=== PATIENT | female | born 1990 | race Caucasian/White ===

== ENCOUNTER 2019-02-22 20:36 | Emergency (ER) | payer BC ==
[2019-02-22 21:06] VITALS: BP 136/88; TEMP 97.9; O2SAT 98
[2019-02-22] MEDS ORDERED: HYDROcodone 7.5MG/APAP 325MG 1 EA TAB PO ONE (21:06)
--- NOTE | 2019-02-22 21:11 | ED.PDOC ---
History of Present Illness - General Chief Complaint: Back Pain or Injury Stated Complaint: Pulled Muscle Time Seen by Provider: 02/22/19 21:06 Source: patient Exam Limitations: no limitations - History of Present Illness Initial Comments: The patient is a 28-year-old female presenting to the emergency room secondary to continued paraspinal muscle spasm adjacent to approximately T8 on the right. 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 She has been taking a muscle relaxer, prednisone and some Tylenol 3. It is still causing her some difficulty. no neurological changes. No pain at the spinous process. No step-off. No bruising. There is palpable muscle spasm. Timing/Duration: other - approximately 10 days Severity: moderate Improving Factors: movement Worsening Factors: movement Associated Symptoms: denies symptoms Home Medications: Ambulatory Orders Tramadol HCl 50 mg PO Q8HR PRN #20 tab 02/22/19 Review of Systems - Review of Systems Constitutional: States: no symptoms reported EENTM: States: no symptoms reported Respiratory: States: no symptoms reported Cardiology: States: no symptoms reported Gastrointestinal/Abdominal: States: no symptoms reported Genitourinary: States: no symptoms reported Musculoskeletal: States: see HPI Skin: States: no symptoms reported Neurological: States: no symptoms reported Endocrine: States: no symptoms reported Hematologic/Lymphatic: States: no symptoms reported All other Systems: No Change from Baseline Past Medical History (General) - Patient Medical History Surgical History: tonsillectomy - Vaccination History Hx Tetanus, Diphtheria Vaccination: Yes Hx Influenza Vaccination: Yes Hx Pneumococcal Vaccination: No Immunizations Up to Date: No - Social History Hx Tobacco Use: Yes Hx Depression: Yes - Female History Patient is a Female of Child Bearing Age (10 -59 yrs old): Yes Patient : No Family Medical History - Family History Mother Family History: Unknown Physical Exam - Physical Exam General Appearance: Alert, Comfortable, No apparent distress Eye Exam: bilateral normal Ears, Nose, Throat: hearing grossly normal, normal ENT inspection Neck: full range of motion, supple Respiratory: no respiratory distress, no accessory muscle use Cardiovascular/Chest: normal peripheral pulses, no edema Peripheral Pulses: radial,right: 2+, radial,left: 2+ Gastrointestinal/Abdominal: non tender, soft Rectal Exam: deferred Back Exam: no vertebral tenderness, muscle spasm, other - see history of present illness Extremity: normal range of motion, non-tender, normal inspection, no pedal edema, normal capillary refill 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 She has been taking her muscle relaxer and is still taking a steroid. She is out of her Tylenol 3. I'm going to switch her to tramadol and give her a dose of hydrocodone tonight. She needs to keep well-hydrated. Primarily she needs to do stretching exercises and take an [id number] anti-inflammatory such as ibuprofen or Aleve. Topical heat may help as well. ER warnings were given. Follow-up with primary care doctor in 3 days. Departure - Departure Clinical Impression: Mid back pain on right side Disposition: Discharge to Home or Self Care Condition: Fair Departure Forms: ED Discharge - Pt. Copy, Patient Portal Self Enrollment Instructions: DI for Back Strain or Sprain Diet: regular diet Activity: increase activity as tolerated Prescriptions: Tramadol HCl 50 mg PO Q8HR PRN #20 tab PRN Reason: Moderate Pain Home Medications: Ambulatory Orders Tramadol HCl 50 mg PO Q8HR PRN #20 tab 02/22/19 Additional Instructions: patient is 28-year-old female presenting to the emergency room secondary to persistent muscle spasm adjacent to approximately T8 or T9 on the right side. She has been taking her muscle relaxer and is still taking a steroid. She is out of her Tylenol 3. I'm going to switch her to tramadol and give her a dose of hydrocodone tonight. She needs to keep well-hydrated. Primarily she needs to do stretching exercises and take an [id number] anti-inflammatory such as ibuprofen or Aleve. Topical heat may help as well. ER warnings were given. Follow-up with primary care doctor in 3 days.
== END 2019-02-22 21:20 | disposition home or self-care (01) ==
LOC: ER 20:36
DX: M54.6 Pain in thoracic spine (principal); F32.9 Major depressive disorder, single episode, unspecified; Z87.891 Personal history of nicotine dependence